=== PATIENT | female | born 1995 | race Caucasian/White ===

== ENCOUNTER 2019-02-13 23:28 | Emergency (ER) | payer MEDICAID ==
--- NOTE | 2019-02-14 00:15 | NUR ---
Patient's name was called in the waiting room. No response.
--- NOTE | 2019-02-14 00:20 | NUR ---
Patient's name was called, no response.
--- NOTE | 2019-02-14 00:25 | NUR ---
Patient's name was called, no response.
--- NOTE | 2019-02-14 00:25 | NUR ---
patient left without being seen.
== END 2019-02-14 00:25 | disposition left against medical advice (07) ==
LOC: SED 23:28
DX: M79.89 Other specified soft tissue disorders (principal); Z53.21 Procedure and treatment not carried out due to patient leaving prior to being seen by health care provider